=== PATIENT | male | born 1980 | race Caucasian/White ===

== ENCOUNTER 2020-09-06 15:07 | Emergency (ER) | payer OTHER, MEDICAID ==
[2020-09-06 16:27] LABS: HEMOGLOBIN 8.9 gm/dl (14.0-17.5); RED BLOOD COUNT 3.1 M/UL (4.20-5.50); WHITE BLOOD COUNT 2.4 K/UL (4.5-11.0)
[2020-09-06 16:48] LABS: BUN/CREATININE RATIO 24 (0-10)
[2020-09-08 09:56] LABS: ACINETOBACTER BAUMANNII Not Detected (Negative); CANDIDA ALBICANS Not Detected (Negative); CANDIDA KRUSEI Not Detected (Negative); CANDIDA TROPICALIS Not Detected (Negative); ENTEROCOCCUS Not Detected (Negative); ESCHERICHIA COLI Not Detected (Negative); HAEMOPHILUS INFLUENZAE Not Detected (Negative); KLEBSIELLA OXYTOCA Not Detected (Negative); KLEBSIELLA PNEUMONIAE Not Detected (Negative); KPC-CARBAPENEM-RESISTANCE GENE Not Detected (Negative); PROTEUS Not Detected (Negative); PSEUDOMONAS AERUGINOSA Not Detected (Negative); SERRATIA MARCESANS Not Detected (Negative); STAPHYLOCOCCUS Not Detected (Negative); STAPHYLOCOCCUS AUREUS Not Detected (Negative); STREP AGALACTIAE (GROUP B) Not Detected (Negative); STREP PYOGENES (GROUP A) Not Detected (Negative); STREPTOCOCCUS Not Detected (Negative); mecA (METHICILLIN RESIST GENE Not Detected (Negative); vanA/B (VANCOMYCIN RESIST GENE Not Detected (Negative)
== END 2020-09-06 20:12 | disposition short-term general hospital (02) ==
LOC: ER1 15:07
PROVIDERS: Emergency Medicine
DX: I71.2 Thoracic aortic aneurysm, without rupture (principal); I50.9 Heart failure, unspecified; D69.6 Thrombocytopenia, unspecified; D58.9 Hereditary hemolytic anemia, unspecified; F17.200 Nicotine dependence, unspecified, uncomplicated; Z87.19 Personal history of other diseases of the digestive system
CPT/HCPCS: 70450; 71045; 80053; 82550; 82553; 83010; 83605; 83615; 83690; 83735; 83874; 83880; 84439; 84443; 84484; 85025; 85379; 85610; 85652; 85730; 86140; 87040; 87077; 87150; 93005; 96365; 96366; 96368; 99285; J2543; Q9967